=== PATIENT | female | born 1995 | race Caucasian/White ===

== ENCOUNTER 2016-08-28 20:03 | Emergency (ER) | payer MEDICAID ==
[2016-08-28] MEDS ORDERED: MORPHINE 4 MG/ML SYR ONE (21:41)
[2016-08-28] MEDS ORDERED: ONDANSETRON ODT 4 MG TAB ONE (21:45)
== END 2016-08-28 23:06 | disposition home or self-care (01) ==
LOC: ER 20:03
DX: K80.50 Calculus of bile duct without cholangitis or cholecystitis without obstruction (principal)
CPT/HCPCS: 71020; 76705; 96372

== ENCOUNTER 2016-09-01 14:39 | Emergency (ER) | payer MEDICAID ==
[2016-09-01] MEDS ORDERED: OPTIRAY 350 100 ML VIAL HMH IV ONE (14:40)
[2016-09-01] MEDS ORDERED: ONDANSETRON 4 MG VIAL ONE (16:14)
[2016-09-01] MEDS ORDERED: SODIUM CHLORIDE 0.9% 1,000 ML ONE (16:14)
[2016-09-01] MEDS ORDERED: DILAUDID 1 MG/ML AMP ONE (16:14)
[2016-09-01] MEDS ORDERED: MORPHINE 4 MG/ML SYR ONE (18:33)
[2016-09-01] MEDS ORDERED: CEFTRIAXONE 1 GM VIAL ONE (19:01)
[2016-09-01] MEDS ORDERED: SODIUM CHLORIDE 0.9% 100 ML IV ONE (19:02)
[2016-09-01] MEDS ORDERED: KETOROLAC 30 MG/ML VIAL ONE (19:28)
== END 2016-09-01 20:58 | disposition home or self-care (01) ==
LOC: ER 14:39
DX: K80.20 Calculus of gallbladder without cholecystitis without obstruction (principal); N83.11 Corpus luteum cyst of right ovary
CPT/HCPCS: 36415; 74177; 76830; 80053; 81001; 83690; 84703; 85025; 87088; 96361; 96365; 96375